=== PATIENT | male | born 1985 | race Caucasian/White ===

== ENCOUNTER 2018-05-13 14:42 | Emergency (ER) | payer SELFPAY ==
[2018-05-13 14:43] VITALS: BP 141/86; PULSE 85; RESP 18; TEMP 36.1; O2SAT 98; BMI 42.3
--- NOTE | 2018-05-13 14:55 | RAD_ITS ---
STUDY: X-RAY - LEFT HAND REASON FOR EXAM: Male, 33 years old. Pain and swelling to fourth and fifth metacarpals after crush injury. TECHNIQUE: Three view(s) of the hand. COMPARISON: None. FINDINGS: Bones: There are no acute osseous abnormalities. Joints: The joints are unremarkable. Soft tissues: The soft tissues are unremarkable. Foreign body: None RAD/Hand Min 3 Views IMPRESSION: No acute abnormalities are seen in the hand. Electronically Signed: Mauricio Temple MD at 15:14 EDT , Service support ,
--- NOTE | 2018-05-13 15:23 | ED.VISSUMM ---
- ER Visit Summary Date of Service: 05/13/18 Chief Complaint: Left hand injury History of Present Illness: The patient is a 33 M who presents with left hand injury that occurred 2 days ago. Patient states he was working on a car when it fell off of the rickey and landed on his left hand. Patient states the pain is worse with movement. Patient denies any paresthesias or weakness. Patient denies any other injuries. Patient states the pain is worse over the fourth and fifth metacarpal areas. Patient denies any radiation of the pain. Physical Examination: Vital signs are stable. Patient is afebrile. Patient is in no acute distress. Musculoskeletal exam reveals tenderness, edema, and ecchymosis over the fourth and fifth metacarpal areas of the left hand. There is no deformity noted. Range of motion was limited in flexion and extension of the fourth and fifth digit secondary to pain. Sensation was intact to light touch in all digits. Capillary refill is less than 2 seconds in all digits. The remaining physical exam is within normal limits. Test Results: X-rays of the left hand were obtained. There is no acute fracture. Emergency Department Course and Treatment: Patient was placed in a cockup splint to his left hand. Patient was instructed to ice and elevate his left hand. Patient was given a prescription for Naprosyn. Patient was instructed to follow-up with his primary care physician in 7-10 days. Patient understood and was agreeable with the plan. All questions were answered. Disposition: Discharged home Impression: Left hand contusion This note was generated with [employer] dictation software. It may contain incorrect words, spelling, and punctuation that were not noted in review of the chart prior to signing ED Disposition - Plan for ED Patient: Disposition: Home or Assisted Living Chief Complaint: Upper Extremity Injury Diagnosis: Contusion of left hand, initial encounter Instructions: ED Contusion Upper Ext Prescriptions: Naproxen [Naprosyn] 500 mg PO BID PRN #20 tab Referrals: Gasper Amaro MD [Primary Care Provider] -
== END 2018-05-13 16:00 | disposition home or self-care (01) ==
PROVIDERS: Emergency Provider Emergency Medicine; Family Provider Family Medicine; PCP Family Medicine
DX: S60.222A Contusion of left hand, initial encounter (principal); W20.8XXA Other cause of strike by thrown, projected or falling object, initial encounter; Y93.9 Activity, unspecified; Y92.9 Unspecified place or not applicable; Y99.9 Unspecified external cause status
CPT/HCPCS: 73130; 99283

== ENCOUNTER 2018-11-02 22:15 | Emergency (ER) | payer MEDICAID, SELFPAY ==
[2018-11-02 22:17] VITALS: BP 156/91; PULSE 131; RESP 16; TEMP 36; O2SAT 96; BMI 45.9
--- NOTE | 2018-11-02 22:40 | ED.DCSUM_ITS ---
- ER Visit Summary Date of Service: 11/02/18 Chief Complaint: Respiratory arrest/unresponsiveness History of Present Illness: The patient is a 33 M who has no recall of what occurred or why he is presently in the emergency department. He does admit to heroin use. He does not recall what happened. He is looking about the room asking where he is at. He was informed that he was administered Narcan intranasally by police. He was informed that he was unresponsive. He denies headache. He denies visual, ocular auditory symptoms. He denies nasal congestion or postnasal drainage. Denies sore throat. Denies neck pain. Denies paresthesia, anesthesia or motor weakness. He denies chest discomfort does report palpitations/rapid heart rate. He denies shortness of breath or difficulty breathing. He denies nausea or vomiting. He states he injects in his arms. He denies paresthesia, anesthesia or motor weakness. He denies allergic symptoms. There is no history of hepatitis, HIV or being immune suppressed. Physical Examination: Vital signs are marked for an elevated blood pressure 136/91, heart rate of 131 and sinus mechanism on monitor, rest rate 16 and pulse ox 96% on room air. BMI 45.9. Head is atraumatic normocephalic. Pupils are equal round reactive. Extraocular muscles are intact. TMs are pearly white with landmarks noted. Nares patent with no drainage. Posterior pharynx without erythema or exudate. Uvula is midline. There is no dysphonia or dysphasia. Trachea is midline. There is no stridor with auscultation of the neck. Heart is rapid and regular without murmur, gallop or rub. S1 and S2 are normal. Lungs are clear to auscultation with good movement of air bilaterally. Abdomen is soft nontender. There is no hepatospleno megaly. Patient has fresh injection site right antecubital fossa. There is no erythema, warmth, induration, lymphangitis or axillary lymphadenopathy. He is alert and oriented to person, place and month. Motor is 5/5. Sensations intact. DTRs symmetric. There is no clonus. Cranial 2 through 12 are intact. Finger-nose to finger was performed adequately. Test Results: None Emergency Department Course and Treatment: Patient was placed on a monitor. He will be observed since he is amnestic presently. Believe the cause of his hypertension and tachycardia are secondary to administration of Narcan. Treatment Plan: Patient was observed for 1 hour and 26 minutes. He is alert and oriented x3 at this time. He still has no recall of what occurred. Disposition: Discharge to home in improved and stable condition Impression: 1. Respiratory arrest secondary to IV heroin 2. Sinus tachycardia documented on monitor This note was generated with [employer] dictation software. It may contain incorrect words, spelling, and punctuation that were not noted in review of the chart prior to signing ED Disposition - Plan for ED Patient: Disposition: Home or Assisted Living Chief Complaint: Overdose Instructions: ED Overdose Opiate Referrals: Gasper Amaro MD [Primary Care Provider] - As Needed
[2018-11-03 00:02] VITALS: BP 132/93; PULSE 110; RESP 18; O2SAT 95
== END 2018-11-03 00:03 | disposition home or self-care (01) ==
PROVIDERS: Emergency Provider Emergency Medicine; Family Provider Family Medicine; PCP Family Medicine
DX: T40.1X1A Poisoning by heroin, accidental (unintentional), initial encounter (principal); R09.2 Respiratory arrest; Y92.9 Unspecified place or not applicable; R03.0 Elevated blood-pressure reading, without diagnosis of hypertension; R00.0 Tachycardia, unspecified; T50.7X5A Adverse effect of analeptics and opioid receptor antagonists, initial encounter; E66.9 Obesity, unspecified; Z68.42 Body mass index [BMI] 45.0-49.9, adult
CPT/HCPCS: 99284; A4216

== ENCOUNTER 2019-02-10 05:46 | Emergency (ER) | payer MEDICAID, SELFPAY ==
[2019-02-10 05:47] VITALS: BP 144/103; PULSE 136; RESP 20; TEMP 36.4; O2SAT 95; BMI 39.1
--- NOTE | 2019-02-10 06:44 | ED.DCSUM_ITS ---
- ER Visit Summary Date of Service: 02/10/19 Chief Complaint: Percocet overdose History of Present Illness: The patient is a 33 M with a history of opiate abuse, IV heroin abuse. He states he took 6 tablets of 10 mg Percocet about an hour ago. EMS was called. He was given Narcan. He is uncertain who called. Currently complains of some chills but otherwise has no complaints. He denies any other drug use tonight. He denies any heroin use tonight. Denies recent illness. No vomiting or diarrhea. Physical Examination: Heart rate 136, blood pressure 144/103 Moist mucous membranes Heart regular tachycardia Lungs are clear Abdomen soft Alert Normal affect Cooperative Test Results: Not indicated Emergency Department Course and Treatment: Patient presents after an opiate overdose and is essentially asymptomatic after administration of Narcan. The Tylenol and 6 tablets of Percocet is below the acute toxic threshold. I do not believe any further testing is necessary at this time. However since this is an oral ingestion plan time this dictation is observation for 4 hours. If patient does not have recurrence of symptoms he will be discharged in police custody. Treatment Plan: [] Disposition: Discharge pending observation Impression: Opiate overdose This note was generated with [employer] dictation software. It may contain incorrect words, spelling, and punctuation that were not noted in review of the chart prior to signing ED Disposition - Plan for ED Patient: Referrals: Gasper Amaro MD [Primary Care Provider] -
--- NOTE | 2019-02-10 06:44 | ED.DEP ---
ED Disposition - Plan for ED Patient: Instructions: ED Overdose Opiate Referrals: Gasper Amaro MD [Primary Care Provider] -
--- NOTE | 2019-02-10 07:02 | RAD_ITS ---
STUDY: X-RAY - BILATERAL RIBS WITH CHEST REASON FOR EXAM: Male, 33 years old. Anterior chest pain bilaterally. Status post CPR for drug overdose. TECHNIQUE - RIBS: 5 view(s) of the ribs. TECHNIQUE - CHEST: Single frontal view of the chest. COMPARISON: 07/07/2014. FINDINGS - RIBS : Normal visualized ribs without a demonstrated fracture. FINDINGS - CHEST: The lungs are clear and mildly under expanded. There is no demonstrated pleural abnormality. Normal size heart. Normal mediastinum and roni. Normal visualized pulmonary arteries. Normal visualized aortic arch and descending thoracic aorta. Normal visualized thoracic spine. Normal visualized ribs, clavicles, and shoulders. There is no demonstrated abnormality of the visualized soft tissue structures of the upper abdomen. RAD/Ribs Michael Min 4V w/PA Chest IMPRESSION: RIBS: Normal x-ray examination of the bilateral ribs. CHEST: No evidence for acute cardiopulmonary pathology. Electronically Signed: Chito Forrester MD at 7:56 EDT , Service support ,
[2019-02-10 07:53] VITALS: BP 122/58; PULSE 119; RESP 20; O2SAT 94
== END 2019-02-10 07:58 | disposition home or self-care (01) ==
PROVIDERS: Emergency Provider Emergency Medicine; Family Provider Family Medicine; PCP Family Medicine
DX: T40.601A Poisoning by unspecified narcotics, accidental (unintentional), initial encounter (principal); Y92.9 Unspecified place or not applicable; Z72.0 Tobacco use
CPT/HCPCS: 71111; 99284